=== PATIENT | male | born 1985 | race Caucasian/White ===

== ENCOUNTER 2020-05-19 05:01 | Emergency (ER) | payer SELFPAY ==
[~2020-05-19] VITALS: Ht 172.7 cm; Wt 60.3 kg
--- NOTE | 2020-05-19 05:16 | NUR ---
PT AMBULATED BACK TO ROOM WITH A SMOOTH AND STEADY GAIT. PT SITTING UP IN [facility]. PT STATES HE CAME IN TODAY DUE TO TINGLING AND NUMBNESS IN HANDS IN ADDITION TO MUSCLE SPASMS IN LEGS. PT DENIES ANY TRAUMA OR PAST DIAGNOSIS RELATING TO THESE SYMPTOMS. PT GROSS NEURO INTACT, CMS INTACT, PERRLA. WCJAIRON. LLOYD HERNANDEZ AT FOR EVAL AND POC.
[2020-05-19 05:46] LABS: BASOPHILS # (AUTO) 0.02 x10^3/uL (0-0.1); BASOPHILS % (AUTO) 0 % (0-1); EOSINOPHILS # (AUTO) 0.02 x10^3/uL (0-0.4); EOSINOPHILS % (AUTO) 0 % (1-7); LYMPHOCYTES # (AUTO) 1.63 x10^3/uL (1-3.4); LYMPHOCYTES % (AUTO) 22 % (22-44); MD NO; MEAN CORPUSCULAR HEMOGLOBIN 32.1 pg (27.5-34.5); MEAN CORPUSCULAR HGB CONC 33.7 g/dL (33.2-36.2); MEAN CORPUSCULAR VOLUME 95.3 fL (81-97); MEAN PLATELET VOLUME 7.7 fL (7.4-10.4); MONOCYTES # (AUTO) 0.41 x10^3/uL (0.2-0.8); MONOCYTES % (AUTO) 6 % (2-9); NEUTROPHILS # (AUTO) 5.39 x10^3/uL (1.8-6.8); NEUTROPHILS % (AUTO) 72 % (42-75); PLATELET COUNT 310 x10^3/uL (130-400); RED BLOOD COUNT 4.81 x10^6/uL (4.38-5.82); RED CELL DISTRIBUTION WIDTH 13.2 % (9.4-14.8)
[2020-05-19 05:52] LABS: ALBUMIN 3.7 g/dL (3.4-5.0); ANION GAP 6 mmol/L (5-15); CALCIUM 8.8 mg/dL (8.5-10.1); CHLORIDE 105 mmol/L (98-107); CREATININE 1.06 mg/dL (0.7-1.3)
--- NOTE | 2020-05-19 06:26 | NUR ---
Patient given discharge instructions and they have confirmed that they understand the instructions. Patient ambulatory with steady gait. NAD, P/W/D. NO BELONGINGS LEFT IN ROOM AFTER DC. DENIES ADDITIONAL NEEDS OR QUESTIONS AT THIS TIME.
[2020-05-19 06:27] VITALS: BP 102/66
== END 2020-05-19 06:31 | disposition home or self-care (01) ==
LOC: ED 05:23
DX: G56.23 Lesion of ulnar nerve, bilateral upper limbs (principal); F17.200 Nicotine dependence, unspecified, uncomplicated
CPT/HCPCS: 36415; 80048; 82040; 85025; 99283